=== PATIENT | female | born 1970 | race Caucasian/White ===

== ENCOUNTER → 2021-09-02 12:06 | Outpatient (CLI) | payer OTHER, SELFPAY ==
--- NOTE | ~2021-09-02 | MR_ITS ---
EXAMINATION: MR foot RT wo/w con DATE: 09/02/2021 13:06 INDICATION: Nondisplaced toe fracture. TECHNIQUE: Magnetic resonance imaging (MRI) of the right foot was performed without and with 15 mL Mu ltiHance intravenous contrast. Sequences included sagittal STIR FSE and T1-weighted FSE and short-axi s and long-axis T1-weighted FSE and T2-weighted FS FSE. Postcontrast sequences included axial, sagitt al, and coronal T1-weighted FS FSE. COMPARISON: None FINDINGS: The bone marrow signal is benign and homogenous. No fracture. No marrow edema. The bones ar e aligned. No significant degenerative changes. No abnormal joint or soft tissue fluid. The flexor an d extensor tendons are intact. Intrinsic muscles of the foot are normal. No abnormal enhancement. IMPRESSION: 1. Normal right foot MR findings. Reviewed, dictated and finalized at location K.
[2021-09-02 12:38] LABS: Estimated Glomerular Filt Rate > 60
== END ==
PROVIDERS: PCP Family Medicine; Visit Provider Family Medicine
DX: S92.504D Nondisplaced unspecified fracture of right lesser toe(s), subsequent encounter for fracture with routine healing (principal)
CPT/HCPCS: 73720; A9577